=== PATIENT | male | born 1960 | race Caucasian/White ===

== ENCOUNTER 2020-10-02 13:29 | Emergency (ER) | payer SELFPAY ==
[2020-10-02] MEDS ORDERED: ACETAMINOPHEN 325 MG TABLET PO ONE (14:13)
--- NOTE | 2020-10-02 14:17 | ER Document Report ---
ED Medical Screen (RME) - General Chief Complaint: Shortness Of Breath Stated Complaint: CHILLS, SORE THROAT, HEADACHE Time Seen by Provider: 10/02/20 14:06 Notes: Patient is a 60-year-old male presents to the emergency department with a chief complaint of a sore throat, chills, and generally not feeling well. Patient states that he stopped taking his medication when he moved down here from [place]. This was about 2 months ago. Patient states for the past 5 to 7 days he has not been feeling well. States that he gets dizzy and has developed some chest pain. She has history of atrial fibrillation and supposed to be on Eliquis, but is not. Patient does not know if he is had exposure to anyone who tested positive for COVID-19. Patient works at [employer]. Exam: Temperature 101.1. I have greeted and performed a rapid initial assessment of this patient. A comprehensive ED assessment and evaluation of the patient, analysis of test results and completion of medical decision making process will be conducted by an additional ED providers. - Related Data Allergies/Adverse Reactions: No Known Allergies Allergy (Verified 10/02/20 14:09) Physical Exam - Vital signs Vitals: Temp Pulse Resp BP Pulse Ox 101.1 F H 90 18 174/99 H 100 10/02/20 13:47 10/02/20 13:47 10/02/20 13:47 10/02/20 13:47 10/02/20 13:47 Course - Vital Signs Vital signs: Temp Pulse Resp BP Pulse Ox 101.1 F H 90 18 174/99 H 100 10/02/20 13:47 10/02/20 13:47 10/02/20 13:47 10/02/20 13:47 10/02/20 13:47
--- NOTE | 2020-10-02 17:12 | RADIOLOGY REPORT (SQ) ---
EXAM DESCRIPTION: CHEST SINGLE VIEW IMAGES COMPLETED DATE/TIME: 10/02/2020 4:56 pm REASON FOR STUDY: chest pain; fever COMPARISON: None. EXAM PARAMETERS: NUMBER OF VIEWS: One view. TECHNIQUE: Single frontal radiographic view of the chest acquired. RADIATION DOSE: NA LIMITATIONS: None. FINDINGS: LUNGS AND PLEURA: No opacities, masses or pneumothorax. No pleural effusion. MEDIASTINUM AND HILAR STRUCTURES: No masses. Contour normal. HEART AND VASCULAR STRUCTURES: Heart normal in size. Normal vasculature. BONES: No acute findings. HARDWARE: None in the chest. OTHER: No other significant finding. IMPRESSION: NO ACUTE RADIOGRAPHIC FINDING IN THE CHEST. TECHNICAL DOCUMENTATION: JOB ID: [id number] 2010 [employer]- All Rights Reserved Reading location - IP/workstation name: [email or web address]
[2020-10-02 17:49] LABS: A TYPE INFLUENZA AG NEGATIVE (NEGATIVE); B INFLUENZA AG NEGATIVE (NEGATIVE)
[2020-10-02 18:44] LABS: URINE AMPHETAMINES SCREEN NEGATIVE; URINE BARBITURATES SCREEN NEGATIVE; URINE BENZODIAZEPINES SCREEN NEGATIVE; URINE COCAINE SCREEN NEGATIVE; URINE METHADONE SCREEN NEGATIVE; URINE PHENCYCLIDINE SCREEN NEGATIVE
[2020-10-02 18:45] LABS: URINE MARIJUANA (THC) SCREEN UNCONFIRMED POSITIVE
[2020-10-02 18:58] LABS: ABSOLUTE BASOPHILS # (AUTO) 0.1 10^3/uL (0.0-0.2); ABSOLUTE LYMPHOCYTES (AUTO) 1.2 10^3/uL (0.5-4.7); ABSOLUTE MONOCYTES (AUTO) 0.8 10^3/uL (0.1-1.4); ABSOLUTE NEUT (AUTO) 10.1 10^3/uL (1.7-8.2); BASOPHILS % (AUTO) 0.6 % (0-2); EOSINOPHILS % (AUTO) 0.2 % (0-6); HEMATOCRIT 42.7 % (37.9-51.0); LYMPHOCYTES % (AUTO) 9.6 % (13-45); MEAN CORPUSCULAR HEMOGLOBIN 31.1 pg (27.0-33.4); MEAN CORPUSCULAR HGB CONC 35.1 g/dL (32.0-36.0); MEAN CORPUSCULAR VOLUME 89 fl (80-97); MONOCYTES % (AUTO) 6.9 % (3-13); PLATELET COUNT 157 10^3/uL (150-450); RED BLOOD COUNT 4.82 10^6/uL (4.35-5.55); SEGMENTED NEUTROPHILS % (AUTO) 82.7 % (42-78); TOTAL CELLS COUNTED % (AUTO) 100 %; WHITE BLOOD COUNT 12.2 10^3/uL (4.0-10.5)
[2020-10-02 19:18] LABS: ALBUMIN 4.5 g/dL (3.5-5.0); ALKALINE PHOSPHATASE 72 U/L (38-126); ANION GAP 14 (5-19); ASPARTATE AMINO TRANSFERASE 24 U/L (17-59); BILIRUBIN,DIRECT 0.1 mg/dL (0.0-0.4); BILIRUBIN,TOTAL 1.3 mg/dL (0.2-1.3); BLOOD UREA NITROGEN 13 mg/dL (7-20); CALCIUM 9.5 mg/dL (8.4-10.2); CARBON DIOXIDE 18 mmol/L (22-30); CHLORIDE 103 mmol/L (98-107); GLUCOSE 97 mg/dL (75-110); POTASSIUM 4.3 mmol/L (3.6-5.0); TOTAL PROTEIN 7.3 g/dL (6.3-8.2)
[2020-10-02] MEDS ORDERED: IBUPROFEN 800 MG TABLET PO ONE (19:24)
--- NOTE | 2020-10-02 19:41 | EKG REPORT ---
SEVERITY:- ABNORMAL ECG - SINUS RHYTHM ATRIAL PREMATURE COMPLEX PROBABLE LEFT ATRIAL ABNORMALITY PROBABLE INFERIOR INFARCT, AGE INDETERMINATE : Confirmed by: Terri Jordan MD 02-Oct-2020 19:40:14
[2020-10-02] MEDS ORDERED: DEXAMETHASONE SOD PHOS INJ 10 MG/1 ML VIAL IV ONE (20:39)
[2020-10-02] MEDS ORDERED: NORMAL SALINE 1000 ML 1,000 ML IV ONE (20:39)
[2020-10-03 00:28] VITALS: BP 134/87
--- NOTE | 2020-10-03 12:07 | ER Document Report ---
Entered by SADI JAMES SCRIBE 10/02/20 1746 Acting as scribe for:AIDA GOTTLIEB MD ED Respiratory Problem <BETTE HYMAN IV - Last Filed: 10/02/20 23:09> - General Information source: Patient <AIDA GOTTLIEB - Last Filed: 10/03/20 12:07> - General Chief Complaint: Shortness Of Breath Stated Complaint: CHILLS, SORE THROAT, HEADACHE Time Seen by Provider: 10/02/20 14:06 Primary Care Provider: NIA TALLEY MD [HONORARY] - Follow up as needed Notes: This 60 year old male patient presents to the emergency department today with a chief complaint of increased shortness of breath with exertion the past several weeks. Patient is a poor historian. Patient states he was diagnosed with HTN, CHF, and Afib between the years of 2232-7121, and has not been on any medications for these for over a year. Denies orthopnea and states he is able to sleep on his side at night. Denies any chest pain, cough, or chills. (AIDA GOTTLIEB) - Related Data Allergies/Adverse Reactions: Penicillins Allergy (Verified 10/02/20 16:25) Past Medical History - General Information source: Patient - Social History Smoking Status: Former Smoker Cigarette use (# per day): No Family History: Reviewed & Not Pertinent - Past Medical History Cardiac Medical History: Reports: Hx Atrial Fibrillation, Hx Congestive Heart Failure, Hx Hypertension Past Surgical History: Reports: Hx Cardiac Catheterization <AIDA GOTTLIEB - Last Filed: 10/03/20 12:07> Review of Systems - Review of Systems Constitutional: See HPI. denies: Chills EENT: No symptoms reported Cardiovascular: See HPI. denies: Chest pain Respiratory: See HPI, Short of breath - with exertion, Other - no orthopnea. denies: Cough Gastrointestinal: No symptoms reported Genitourinary: No symptoms reported Male Genitourinary: No symptoms reported Musculoskeletal: No symptoms reported Skin: No symptoms reported Hematologic/Lymphatic: No symptoms reported Neurological/Psychological: No symptoms reported -: Yes All other systems reviewed and negative <AIDA GOTTLIEB - Last Filed: 10/03/20 12:07> Physical Exam - General General appearance: Alert - HEENT Head: Normocephalic, Atraumatic Eyes: Normal Pupils: PERRL - Respiratory Respiratory status: No respiratory distress Chest status: Nontender Breath sounds: Normal Chest palpation: Normal - Cardiovascular Rhythm: Regular Heart sounds: Normal auscultation Murmur: Yes Systolic murmur grade 1-6: 2 - Abdominal Inspection: Other - ascites Bowel sounds: Normal Tenderness: Nontender - Extremities General upper extremity: Normal inspection. No: Edema General lower extremity: Normal inspection. No: Edema - Neurological Neuro grossly intact: Yes Cognition: Normal Eliza Coma Scale Eye Opening: Spontaneous Eliza Coma Scale Verbal: Oriented Eliza Coma Scale Motor: Obeys Commands [place] Coma Scale Total: 15 - Psychological Associated symptoms: Normal affect, Normal mood - Skin Skin Temperature: Warm Skin Moisture: Dry Skin Color: Normal <AIDA GOTTLIEB - Last Filed: 10/03/20 12:07> - Vital signs Vitals: Temp Pulse Resp BP Pulse Ox 101.1 F H 90 18 174/99 H 100 10/02/20 13:47 10/02/20 13:47 10/02/20 13:47 10/02/20 13:47 10/02/20 13:47 Course - Laboratory Result Diagrams: 10/02/20 17:30 10/02/20 17:30 - Diagnostic Test Radiology reviewed: Reports reviewed <BETTE HYMAN IV - Last Filed: 10/02/20 23:09> - Laboratory Result Diagrams: 10/02/20 17:30 10/02/20 17:30 - Diagnostic Test Radiology reviewed: Image reviewed, Reports reviewed <AIDA GOTTLIEB - Last Filed: 10/03/20 12:07> - Re-evaluation Re-evalutation: 10/02/20 23:29 Results of ED MSE discussed with patient. Patient has negative for the flu, the re is no evidence of pneumonia, has symptoms that are not unusual for Covid positive patients. Given that the results of his Covid test her pending patient was given a work note to be out until 10/08/2020 and information about precautions for patients under investigation for COVID-19. Patient's repeat troponin is decreased, and patient states he feels slightly better after receiving fluids. All questions were answered prior to discharge. Emergency signs and symptoms, reasons to return to the emergency department discussed with patient. (BETTE HYMAN IV) 10/03/20 12:05 Patient's course shows that patient improved during the ER visit. Patient left the department feeling better than he did on arrival. Patient was not found to be in congestive heart failure or suffering a heart attack. Patient was tested for COVID-19 inasmuch he presents with shortness of breath and there were apparently some reasons for an mild elevation in temperature. (AIDA GOTTLIEB) - Vital Signs Vital signs: Temp Pulse Resp BP Pulse Ox 98.6 F 59 L 16 134/87 H 97 10/03/20 00:21 10/03/20 00:21 10/03/20 00:21 10/03/20 00:21 10/03/20 00:21 Vital signs on discharge shows a blood pressure 134/87 saturation 97% room air afebrile with a pulse of 59. 10/03/20 12:06 (AIDA GOTTLIEB) - Laboratory Laboratory results interpreted by me: 10/02/20 10/02/20 10/02/20 17:30 17:30 17:30 WBC 12.2 H Lymph % (Auto) 9.6 L Absolute Neuts (auto) 10.1 H Seg Neutrophils % 82.7 H Sodium 135.4 L Carbon Dioxide 18 L NT-Pro-B Natriuret Pep 126 H 10/02/20 10/02/20 10/02/20 17:30 17:30 17:30 WBC 12.2 H Lymph % (Auto) 9.6 L Absolute Neuts (auto) 10.1 H Seg Neutrophils % 82.7 H Sodium 135.4 L Carbon Dioxide 18 L NT-Pro-B Natriuret Pep 126 H 10/03/20 12:06 Laboratories essentially unremarkable and patient is 12.2 white blood cell count CO2 of 18 and sodium 135 BMP was within normal range which clearly distinguishes that he is not in congestive heart failure (AIDA GOTTLIEB) - Diagnostic Test Radiology results interpreted by me: 10/02/20 17:54 Chest X-Ray 10/02/20 14:15 IMPRESSION: NO ACUTE RADIOGRAPHIC FINDING IN THE CHEST. Chest x-ray shows no acute process no acute radiographic finding in the chest. (AIDA GOTTLIEB) - EKG Interpretation by Me Additional EKG results interpreted by me: 10/02/20 17:52 Twelve-lead EKG shows normal sinus rhythm rate of 77 PACs noted. Probable left atrial abnormality; questionable inferior infarct age indeterminate. Left axis deviation MS interval within normal range QRS intervals within normal range and QT interval within normal range no acute STEMI. (AIDA GOTTLIEB) - Transfer of Care Notes: 10/02/20 20:[address] Hyman. (AIDA GOTTLIEB) Discharge <BETTE HYMAN IV - Last Filed: 10/02/20 23:09> <AIDA GOTTLIEB - Last Filed: 10/03/20 12:07> - Discharge Clinical Impression: Marijuana use, Person under investigation for COVID-19 Fever Qualifiers: Fever type: unspecified Qualified Code(s): R50.9 - Fever, unspecified Fatigue Qualifiers: Fatigue type: unspecified Qualified Code(s): R53.83 - Other fatigue Condition: Stable Disposition: HOME, SELF-CARE Instructions: COVID-19 Guidance for Persons Under Investigation Additional Instructions: Current recommendations for patients with suspected COVID-19 infection and symptoms include the following: Vitamin C 500 mg twice a day Quercetin 250-500mg twice a day Melatonin 6 to 12 mg at bedtime Vitamin D3 2000 to 4000 units daily Aspirin 81 to 325 mg daily Famotidine (Pepcid) 40 mg twice a day Return to the Emergency Department without delay if any worse. HOME CARE INSTRUCTIONS & INFORMATION: Thank you for choosing us for your medical needs. We hope you're satisfied with the care you received. After you leave, you must properly care for your problem and, at the same time, observe its progress. Any condition can change. Some illnesses can change rapidly over hours or days. If your condition worsens, return to the Emergency Department or see your physician promptly. ABOUT YOUR X-RAYS AND EKG'S: If you had an EKG or X-rays taken, they have been read by the Emergency Physician. The X-rays and EKG's will also be read by a Radiologist or [employer] within 24 hours. If discrepancies are noted, you will be notified by telephone. Please be certain the ED has a correct telephone number & address where you can be reached. Also, realize that some fractures or abnormalities do not show up on initial X-rays. If your symptoms continue, see your physician. ABOUT YOUR LABORATORY TEST: If you had laboratory tests, the results have been reviewed by the Emergency Physician. Some test results (for example cultures) may not be available for several days. You will be contacted if any test result shows you need additional treatment. Please be certain the ED has a correct telephone number and address where you can be reached. ABOUT YOUR MEDICATIONS: You will receive instructions on how to take your medicine on the prescription label you receive. Additional information may be provided by the Pharmacy. If you have questions afterwards, call the ED for clarification or further instructions. Some prescribed medications may cause drowsiness. Do not perform tasks such as driving a car or operating machinery without consulting your Pharmacist. If you feel you need a refill of pain medication, your condition will need re-evaluation. Please do not call for a refill of any medication. ABOUT YOUR SIGNATURE: Signature of this document acknowledges to followin. Understanding that you received emergency treatment and that you may be released before al medical problems are known or treated. Please be certain the ED has a correct phone number & address where you can be reached. 2. Acknowledgement that you will arrange for follow-up care as recommended. 3. Authorization for the Emergency Physician to provide information to your follow-up Physician in order to maximize your care. AT ANY TIME, IF YOUR SYMPTOMS CHANGE SIGNIFICANTLY OR WORSEN OR YOU DEVELOP NEW SYMPTOMS, RETURN TO THE EMERGENCY DEPARTMENT IMMEDIATELY FOR RE-EVALUATION. OUR GOAL IS TO PROVIDE EXCELLENT MEDICAL CARE! WE HOPE THAT WE HAVE MET YOUR EXPECTATIONS DURING YOUR EMERGENCY DEPARTMENT VISIT AND THAT YOU FEEL YOU HAVE RECEIVED EXCELLENT CARE! Forms: Return to Work Referrals: NIA TALLEY MD [HONORARY] - Follow up as needed I personally performed the services described in the documentation, reviewed and edited the documentation which was dictated to the scribe in my presence, and it accurately records my words and actions.
== END 2020-10-03 00:35 | disposition home or self-care (01) ==
LOC: ER 13:29
DX: R06.02 Shortness of breath (principal); R53.83 Other fatigue; R50.9 Fever, unspecified; F12.90 Cannabis use, unspecified, uncomplicated; Z20.828 Contact with and (suspected) exposure to other viral communicable diseases; I48.91 Unspecified atrial fibrillation; I11.0 Hypertensive heart disease with heart failure; I50.9 Heart failure, unspecified; Z88.0 Allergy status to penicillin
CPT/HCPCS: 93005; 99285; 96361; 96374; 36415; 82550; 85025; 87635; 80053; 84484; 80307; 87804; 83880; 71045; 93010; J7030; J1100; C9803